=== PATIENT | female | born 1955 | race Caucasian/White ===

== ENCOUNTER 2022-07-27 10:21 | Emergency (ER) | payer MEDICARE, OTHER | END 2022-07-27 12:18 | disposition home or self-care (01) | LOC: DL.ED 10:21 | DX: S80.12XA Contusion of left lower leg, initial encounter (principal); I80.02 Phlebitis and thrombophlebitis of superficial vessels of left lower extremity; I10 Essential (primary) hypertension; J44.9 Chronic obstructive pulmonary disease, unspecified; K21.9 Gastro-esophageal reflux disease without esophagitis; F17.210 Nicotine dependence, cigarettes, uncomplicated; Z88.7 Allergy status to serum and vaccine; Z88.8 Allergy status to other drugs, medicaments and biological substances; W22.09XA Striking against other stationary object, initial encounter | CPT/HCPCS: 93971; 99283 ==